=== PATIENT | male | born 1980 | race Caucasian/White ===

== ENCOUNTER 2024-12-22 19:11 | Emergency (ER) | payer MEDICAID ==
[~2024-12-22] VITALS: Ht 170.2 cm; Wt 75.8 kg
[2024-12-22 21:04] VITALS: BP 135/82; PULSE 84; RESP 16; TEMP 98.2; O2SAT 98
== END 2024-12-22 21:12 | disposition home or self-care (01) ==
LOC: ER 19:12
DX: T59.891A Toxic effect of other specified gases, fumes and vapors, accidental (unintentional), initial encounter (principal); R06.02 Shortness of breath; Y92.89 Other specified places as the place of occurrence of the external cause
CPT/HCPCS: 71045; 93005; 99283